=== PATIENT | female | born 1995 | race Caucasian/White ===

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

== ENCOUNTER → 2017-02-03 | Outpatient (REF) | payer OTHER | LOC: M LAB REF 16:09 | PROVIDERS: ATTEND Physician Assistant | DX: R30.0 Dysuria (principal) ==

== ENCOUNTER → 2017-04-03 | Outpatient (CLI) | payer OTHER ==
--- NOTE | 2017-04-04 03:05 | REP ---
Clinical: Pain . Technique: Internal rotation, external rotation, and Y view left shoulder . Findings: No acute fracture or dislocation. The acromioclavicular and glenohumeral joints are intact. No periarticular calcifications or degenerative changes are appreciated. Sub acromial space is normal. Surrounding soft tissues are unremarkable. Impression: Normal age-appropriate left shoulder radiographs. Signed by Mynor Tenorio MD 04/04/2017 02:56 A
== END ==
LOC: M WUC 17:19
PROVIDERS: ATTEND Physician Assistant
DX: M25.511 Pain in right shoulder (principal)

== ENCOUNTER → 2017-04-25 | Outpatient (CLI) | payer OTHER ==
[2017-04-25 20:57] LABS: BASO # 0.1 10^3/uL (0.0-0.2); BASO % 0.8 % (0.0-1.0); EOS % 9.9 % (0.0-3.0); IMMATURE GRANULOCYTE % 0.4 % (0-0); LYMPH # 3.8 10^3/uL (1.5-6.5); LYMPH % 37.9 % (24.0-44.0); MEAN CORPUSCULAR HEMOGLOBIN 27.7 pg (27.0-33.0); MEAN CORPUSCULAR HGB CONC 33.1 g/dl (32.0-36.5); MEAN CORPUSCULAR VOLUME 83.9 fl (80.0-96.0); MONO # 0.8 10^3/uL (0.0-0.8); MONO % 7.6 % (0.0-5.0); NEUTROPHILS # 4.4 10^3/uL (1.8-7.7); NEUTROPHILS % 43.4 % (36.0-66.0); PLATELET COUNT, AUTOMATED 385 10^3/uL (150-450); RED CELL DISTRIBUTION WIDTH 12.6 % (11.5-14.5)
[2017-04-25 21:36] LABS: ALBUMIN 3.5 GM/DL (3.2-5.2); ALBUMIN/GLOBULIN RATIO 0.85 (1.00-1.93); ALKALINE PHOSPHATASE 78 U/L (45-117); ALT/SGPT 14 U/L (12-78); ANION GAP 7 MEQ/L (8-16); AST/SGOT 10 U/L (15-37); BILIRUBIN,TOTAL 0.3 MG/DL (0.2-1.0); BLOOD UREA NITROGEN 8 MG/DL (7-18); CALCIUM LEVEL 9.2 MG/DL (8.5-10.1); CARBON DIOXIDE LEVEL 27 MEQ/L (21-32); CHLORIDE LEVEL 104 MEQ/L (98-107); CREATININE FOR GFR 0.57 MG/DL (0.55-1.02); GLUCOSE, FASTING 83 MG/DL (70-105); POTASSIUM SERUM 4.2 MEQ/L (3.5-5.1); SODIUM LEVEL 138 MEQ/L (136-145); TOTAL PROTEIN 7.6 GM/DL (6.4-8.2)
[2017-04-28 00:07] LABS: Lyme Disease IgG/IgM Antibodie <0.91 ISR (0.00-0.90); Lyme Disease IgM Ab Quantitati <0.80 index (0.00-0.79)
== END ==
LOC: M WUC 16:00
PROVIDERS: ATTEND Physician Assistant
DX: R53.83 Other fatigue (principal)

== ENCOUNTER → 2017-07-07 | Outpatient (REF) | payer OTHER | LOC: M LAB REF 21:47 | DX: R10.9 Unspecified abdominal pain (principal) ==

== ENCOUNTER → 2017-08-29 | Outpatient (REF) | payer OTHER ==
[2017-08-29 20:50] LABS: INFLUENZA A AMPLIFICATION NEGATIVE (NEGATIVE); INFLUENZA B AMPLIFICATION NEGATIVE (NEGATIVE)
== END ==
LOC: M LAB REF 09:41
DX: J11.1 Influenza due to unidentified influenza virus with other respiratory manifestations (principal)

== ENCOUNTER → 2017-09-05 | Outpatient (REF) | payer OTHER ==
[2017-09-05 19:36] LABS: BASO # 0.1 10^3/uL (0.0-0.2); BASO % 0.6 % (0.0-1.0); EOS # 0.4 10^3/uL (0.0-0.50); EOS % 4.5 % (0.0-3.0); HEMATOCRIT 38.7 % (36.0-47.0); IMMATURE GRANULOCYTE % 0.2 % (0-3.0); LYMPH # 3.9 10^3/uL (1.5-6.5); LYMPH % 46.1 % (24.0-44.0); MEAN CORPUSCULAR HEMOGLOBIN 27.4 pg (27.0-33.0); MEAN CORPUSCULAR HGB CONC 33.6 g/dl (32.0-36.5); MEAN CORPUSCULAR VOLUME 81.6 fl (80.0-96.0); MONO # 0.7 10^3/uL (0.0-0.8); MONO % 8.8 % (0.0-5.0); NEUTROPHILS # 3.3 10^3/uL (1.8-7.7); NEUTROPHILS % 39.8 % (36.0-66.0); PLATELET COUNT, AUTOMATED 311 10^3/uL (150-450); RED BLOOD COUNT 4.74 10^6/uL (4.00-5.40); RED CELL DISTRIBUTION WIDTH 12.2 % (11.5-14.5); WHITE BLOOD COUNT 8.4 10^3/uL (4.0-10.0)
[2017-09-05 20:02] LABS: FOLATE > 24.0 NG/ML (>5.4)
[2017-09-05 20:05] LABS: TOTAL 25(OH) VITAMIN D 14.6 NG/ML (30.0-100.0)
[2017-09-05 20:23] LABS: ALBUMIN 3.7 GM/DL (3.2-5.2); ALBUMIN/GLOBULIN RATIO 0.93 (1.00-1.93); ALKALINE PHOSPHATASE 92 U/L (45-117); ALT/SGPT 34 U/L (12-78); ANION GAP 8 MEQ/L (8-16); AST/SGOT 26 U/L (7-37); BILIRUBIN,TOTAL 0.2 MG/DL (0.2-1.0); BLOOD UREA NITROGEN 8 MG/DL (7-18); C REACTIVE PROTEIN QUANTITATIV 0.98 MG/DL (0.00-0.30); CALCIUM LEVEL 9.3 MG/DL (8.5-10.1); CARBON DIOXIDE LEVEL 25 MEQ/L (21-32); CHLORIDE LEVEL 103 MEQ/L (98-107); CREATININE FOR GFR 0.65 MG/DL (0.55-1.30); FERRITIN 24 NG/ML (8-252); GLUCOSE, FASTING 89 MG/DL (70-100); IRON (FE) 88 UG/DL (50-170); POTASSIUM SERUM 4.3 MEQ/L (3.5-5.1); SODIUM LEVEL 136 MEQ/L (136-145); TOTAL PROTEIN 7.7 GM/DL (6.4-8.2)
[2017-09-06 09:02] LABS: CONTROL LINE MONO INT CTR LINE PRESENT; MONO SCRN NEGATIVE (NEGATIVE)
== END ==
LOC: M LAB REF 17:09
DX: R53.83 Other fatigue (principal); R53.81 Other malaise
CPT/HCPCS: 82746

== ENCOUNTER → 2017-10-02 | Outpatient (CLI) | payer OTHER | LOC: M WUC 17:10 | DX: S60.052A Contusion of left little finger without damage to nail, initial encounter (principal); X58.XXXA Exposure to other specified factors, initial encounter; Y92.9 Unspecified place or not applicable | CPT/HCPCS: 73660 ==

== ENCOUNTER → 2018-01-17 | Outpatient (REF) | payer OTHER | LOC: M LAB REF 13:16 | DX: R10.30 Lower abdominal pain, unspecified (principal) ==

== ENCOUNTER → 2018-01-17 | Outpatient (CLI) | payer OTHER | LOC: M RAD 14:19 | DX: R10.30 Lower abdominal pain, unspecified (principal) | CPT/HCPCS: 76856 ==

== ENCOUNTER → 2018-01-17 | Outpatient (CLI) | payer OTHER ==
[2018-01-17 10:17] LABS: BASO # 0.1 10^3/uL (0.0-0.2); BASO % 0.9 % (0.0-1.0); EOS # 0.8 10^3/uL (0.0-0.50); HEMATOCRIT 37.6 % (36.0-47.0); HEMOGLOBIN 12.4 g/dl (12.0-15.5); IMMATURE GRANULOCYTE % 0.4 % (0-3.0); LYMPH # 3.1 10^3/uL (1.5-6.5); LYMPH % 38.9 % (24.0-44.0); MEAN CORPUSCULAR HEMOGLOBIN 28.2 pg (27.0-33.0); MEAN CORPUSCULAR VOLUME 85.5 fl (80.0-96.0); MONO # 0.8 10^3/uL (0.0-0.8); NEUTROPHILS # 3.2 10^3/uL (1.8-7.7); NEUTROPHILS % 39.8 % (36.0-66.0); PLATELET COUNT, AUTOMATED 324 10^3/uL (150-450); RED CELL DISTRIBUTION WIDTH 12.4 % (11.5-14.5)
[2018-01-17 10:52] LABS: ALBUMIN 3.7 GM/DL (3.2-5.2); ALKALINE PHOSPHATASE 102 U/L (45-117); ALT/SGPT 24 U/L (12-78); ANION GAP 11 MEQ/L (8-16); AST/SGOT 15 U/L (7-37); BILIRUBIN,TOTAL 0.5 MG/DL (0.2-1.0); BLOOD UREA NITROGEN 10 MG/DL (7-18); CALCIUM LEVEL 8.7 MG/DL (8.5-10.1); CARBON DIOXIDE LEVEL 24 MEQ/L (21-32); CHLORIDE LEVEL 106 MEQ/L (98-107); CREATININE FOR GFR 1.28 MG/DL (0.55-1.30); GLUCOSE, FASTING 90 MG/DL (70-100); HCG, SERUM QUANTITATIVE < 1.0 MIU/ML; POTASSIUM SERUM 4.3 MEQ/L (3.5-5.1); SODIUM LEVEL 141 MEQ/L (136-145); TOTAL PROTEIN 7.4 GM/DL (6.4-8.2)
== END ==
LOC: M WUC 09:22
DX: R10.30 Lower abdominal pain, unspecified (principal)
CPT/HCPCS: 80053

== ENCOUNTER 2018-09-07 11:09 | Emergency (ER) | payer OTHER ==
[~2018-09-07] VITALS: Ht 154.9 cm; Wt 54.5 kg
[2018-09-07] MEDS ORDERED: CYCLOBENZAPRINE 10 MG TAB PO ONE (11:30)
[2018-09-07] MEDS ORDERED: MORPHINE 10 MG/ML 1ML VIAL (J2270) IM ONE (11:30)
--- NOTE | 2018-09-07 11:57 | REP ---
Clinical: Trauma/fall with point tenderness. Technique: Axial noncontrast images from T12 through mid sacrum with coronal and sagittal re-formations. Findings: Alignment and lordosis maintained. Vertebral bodies are intact. No acute fracture / compression injury or subluxation. No obvious significant disc bulge. Spinal canal is patent. Posterior elements and spinous processes are intact. Neural foramen appear patent. Paravertebral soft tissues appear normal. Impression: Normal noncontrast lumbosacral spine CT. Electronically Signed by Mynor Tenorio MD 09/07/2018 11:48 A
[2018-09-07] MEDS ORDERED: ROBA500T PO (12:07)
[2018-09-07] MEDS ORDERED: PRED10TA2 PO (12:07)
[2018-09-07 12:12] VITALS: BP 111/68
== END 2018-09-07 12:10 | disposition home or self-care (01) ==
LOC: M ED 11:09
DX: S39.012A Strain of muscle, fascia and tendon of lower back, initial encounter (principal); M62.830 Muscle spasm of back; W19.XXXA Unspecified fall, initial encounter; Y92.89 Other specified places as the place of occurrence of the external cause; Z88.1 Allergy status to other antibiotic agents
CPT/HCPCS: 72131; 96372; 99283; J2270

== ENCOUNTER → 2019-01-14 | Outpatient (CLI) | payer OTHER ==
[~2019-01-14] MED LIST: PRED10TA2 PO; ROBA500T PO
--- NOTE | 2019-01-14 22:56 | REP ---
Clinical: Right lower quadrant pain . Technique: Transabdominal pelvic ultrasound followed by transvaginal examination for better evaluation of the endometrium and adnexa. Findings: Bladder is collapsed. Normal anteverted uterus measures 7.7 x 3.6 x 3.4 cm . The endometrial complex measures 3.3 mm thickness. No discrete uterine or endometrial abnormalities are appreciated. Bilateral ovaries are normal in appearance. Right ovary measures 3.0 x 1.7 x 2.3 cm ; Left ovary measures 3.6 x 1.9 x 2.3 cm. No pelvic free fluid or adnexal mass lesion . Impression: 1. Normal pelvic ultrasound Electronically Signed by Mynor Tenorio MD 01/14/2019 10:47 P
== END ==
LOC: M RAD 10:28
PROVIDERS: ATTEND Physician Assistant Medical
DX: R10.813 Right lower quadrant abdominal tenderness (principal)

== ENCOUNTER 2019-03-09 09:33 | Emergency (ER) | payer OTHER ==
[~2019-03-09] VITALS: Ht 157.5 cm; Wt 69.0 kg
[2019-03-09] MEDS ORDERED: IBUP-1114 PO (09:38)
[2019-03-09] MEDS ORDERED: REME30TA PO (09:38)
[2019-03-09] MEDS ORDERED: ONDANSETRON 4MG/2ML VIAL (J2405) IV ONE (09:45)
[2019-03-09] MEDS ORDERED: NS 1,000 ML IV ONE (09:45)
[2019-03-09] MEDS ORDERED: NS IV ONE (10:00)
[2019-03-09] MEDS ORDERED: ACETAMINOPHEN 500 MG TAB PO ONE (10:00)
[2019-03-09] MEDS ORDERED: [UNRECOGNIZED DRUG - OTHER] IV ONE (10:00)
[2019-03-09] MEDS ORDERED: KETOROLAC 30 MG/ML VIAL (J1885) IV ONE (10:00)
[2019-03-09] MEDS ORDERED: LIDOCAINE 2% IV ONE (10:00)
[2019-03-09 10:01] LABS: BASO # 0.1 10^3/uL (0.0-0.2); BASO % 0.9 % (0.0-1.0); EOS # 0.6 10^3/uL (0.0-0.5); EOS % 5.9 % (0.0-3.0); HEMATOCRIT 39.7 % (36.0-47.0); HEMOGLOBIN 13.2 g/dl (12.0-15.5); LYMPH # 3.1 10^3/uL (1.5-5.0); LYMPH % 29.4 % (24.0-44.0); MEAN CORPUSCULAR HEMOGLOBIN 27.9 pg (27.0-33.0); MEAN CORPUSCULAR HGB CONC 33.2 g/dl (32.0-36.5); MEAN CORPUSCULAR VOLUME 83.9 fl (80.0-96.0); MONO % 9.3 % (0.0-5.0); NEUTROPHILS # 5.6 10^3/uL (1.5-8.5); NEUTROPHILS % 52.9 % (36.0-66.0); PLATELET COUNT, AUTOMATED 350 10^3/uL (150-450); RED BLOOD COUNT 4.73 10^6/uL (4.00-5.40); WHITE BLOOD COUNT 10.6 10^3/uL (4.0-10.0)
[2019-03-09] MEDS ORDERED: MORPHINE 4 MG/ML 1ML VIAL/SYRINGE (J2270) As Ordered ONE (10:06)
[2019-03-09] MEDS ORDERED: MORPHINE 4 MG/ML 1ML VIAL/SYRINGE (J2270) IV ONE (10:15)
[2019-03-09 10:32] LABS: ALBUMIN 3.7 GM/DL (3.2-5.2); BILIRUBIN,DIRECT 0.1 MG/DL (0.0-0.2); BILIRUBIN,TOTAL 0.2 MG/DL (0.2-1.0); TOTAL PROTEIN 7.7 GM/DL (6.4-8.2)
--- NOTE | 2019-03-09 10:45 | REP ---
Clinical: Right flank pain. Technique: Axial noncontrast images from the lung bases to the pubic symphysis with coronal and sagittal re-formations. Comparison: 05/30/2016. Findings: Mild right-sided acute obstructive uropathy with hydronephrosis and hydroureter with a 2 mm obstructing calculus at the right ureterovesical junction (image #[id number]). Few small bilateral nonobstructing intrarenal calculi noted measuring up to 2 mm. Liver, spleen, pancreas, gallbladder, and bilateral adrenal glands are normal for noncontrast evaluation. The enteric system is without obstruction or acute inflammatory process. Pelvis demonstrates collapsed normal bladder and age-appropriate uterus/adnexa. No ascites. No free air. No adenopathy. Abdominal aorta without aneurysm. Musculoskeletal structures intact lung bases clear. Impression: Mild acute right-sided obstructive uropathy with a 2 mm obstructing calculus at the ureterovesicle junction. Small nonobstructing bilateral intrarenal calculi up to 2 mm. Electronically Signed by Mynor Tenorio MD 03/09/2019 10:37 A
[2019-03-09] MEDS ORDERED: LevoFLOXacin IV 750 MG in APPROPRIATE DILUENT 1 EA IV ONE (11:00)
[2019-03-09] MEDS ORDERED: PERCOCET 5MG/325MG TAB PO ONE (11:15)
[2019-03-09 12:15] VITALS: BP 120/63
[2019-03-09] MEDS ORDERED: LEVA750T7 PO (12:29)
[2019-03-09] MEDS ORDERED: PERC5TAB12 PO (12:30)
[2019-03-09] MEDS ORDERED: ZOFR4TAB16 PO (12:31)
[2019-03-09] MEDS ORDERED: IBUP-1022 PO (12:31)
== END 2019-03-09 12:20 | disposition home or self-care (01) ==
LOC: M ED 09:33
DX: N39.0 Urinary tract infection, site not specified (principal); N23 Unspecified renal colic; N13.30 Unspecified hydronephrosis; F17.210 Nicotine dependence, cigarettes, uncomplicated
CPT/HCPCS: 74176; 80047; 80076; 81001; 83690; 84702; 85025; 87040; 87086; 93041; 96361; 96365; 96375; 99284; J1885; J1956; J2270; J2405

== ENCOUNTER 2019-05-18 11:55 | Emergency (ER) | payer OTHER ==
[~2019-05-18] VITALS: Ht 154.9 cm; Wt 64.2 kg
[~2019-05-18 11:55] MED LIST changes: +IBUP-1022 PO; +IBUP-1114 PO; +LEVA750T7 PO; +PERC5TAB12 PO; +REME30TA PO; +ZOFR4TAB16 PO
[2019-05-18 12:31] LABS: BASO # 0.1 10^3/uL (0.0-0.2); BASO % 0.7 % (0.0-1.0); EOS # 0.4 10^3/uL (0.0-0.5); EOS % 3.8 % (0.0-3.0); HEMATOCRIT 38.5 % (36.0-47.0); HEMOGLOBIN 12.6 g/dl (12.0-15.5); LYMPH # 2.8 10^3/uL (1.5-5.0); LYMPH % 27.3 % (24.0-44.0); MEAN CORPUSCULAR HEMOGLOBIN 28.4 pg (27.0-33.0); MEAN CORPUSCULAR HGB CONC 32.7 g/dl (32.0-36.5); MEAN CORPUSCULAR VOLUME 86.9 fl (80.0-96.0); MONO % 9.5 % (0.0-5.0); NEUTROPHILS # 5.9 10^3/uL (1.5-8.5); NEUTROPHILS % 58.3 % (36.0-66.0); PLATELET COUNT, AUTOMATED 332 10^3/uL (150-450); RED BLOOD COUNT 4.43 10^6/uL (4.00-5.40); WHITE BLOOD COUNT 10.2 10^3/uL (4.0-10.0)
[2019-05-18] MEDS ORDERED: NS IV ONE (12:45)
[2019-05-18] MEDS ORDERED: KETAMINE HCL IV ONE (12:45)
[2019-05-18 12:55] LABS: ALBUMIN 3.7 GM/DL (3.2-5.2); ALT/SGPT 16 U/L (12-78); BILIRUBIN,DIRECT 0.2 MG/DL (0.0-0.2); BILIRUBIN,TOTAL 0.8 MG/DL (0.2-1.0); BLOOD UREA NITROGEN 9 MG/DL (7-18); CALCIUM LEVEL 8.8 MG/DL (8.5-10.1); CARBON DIOXIDE LEVEL 25 MEQ/L (21-32); CHLORIDE LEVEL 111 MEQ/L (98-107); CREATININE FOR GFR 0.84 MG/DL (0.55-1.30); GLOMERULAR FILTRATION RATE > 60.0 (>60); GLUCOSE, FASTING 101 MG/DL (70-100); LIPASE 71 U/L (73-393); POTASSIUM SERUM 3.6 MEQ/L (3.5-5.1); SODIUM LEVEL 142 MEQ/L (136-145); TOTAL PROTEIN 7.2 GM/DL (6.4-8.2)
--- NOTE | 2019-05-18 13:46 | REP ---
CT of the abdomen pelvis without IV and oral contrast for left flank pain: Comparison is 03/09/2019. There is a 4 mm calculus in the proximal left ureter. There is left hydronephrosis. There is no perinephric stranding. There is no right hydronephrosis. There are tiny nonobstructive renal calculi bilaterally as previously. There are no bladder calculi. The visualized lung arita are unremarkable. The unenhanced hepatic parenchyma, gallbladder, pancreas, spleen, adrenals and abdominal aorta are unremarkable. There is no periaortic adenopathy or mass. The bowel and mesentery are unremarkable. Pelvis: The appendix is unremarkable. The uterus, adnexa and bladder are unremarkable. There is no adenopathy or ascites. The pelvic bowel loops are unremarkable. Impression: There is a 4 mm calculus in the proximal left ureter. There is left hydronephrosis. There are multiple tiny bilateral nonobstructive renal calculi. Electronically Signed by Erwin Rao MD 05/18/2019 01:36 P
[2019-05-18] MEDS ORDERED: PERC5TAB12 PO (14:06)
[2019-05-18] MEDS ORDERED: CIPR-249 PO (14:06)
[2019-05-18] MEDS ORDERED: ONDA4TAB6 PO (14:06)
[2019-05-18] MEDS ORDERED: FLOM0.4C39 PO (14:06)
[2019-05-18 14:08] VITALS: BP 100/67
== END 2019-05-18 14:38 | disposition home or self-care (01) ==
LOC: M ED 11:55
DX: N20.1 Calculus of ureter (principal); F17.210 Nicotine dependence, cigarettes, uncomplicated; Z88.1 Allergy status to other antibiotic agents; Z79.899 Other long term (current) drug therapy

== ENCOUNTER 2019-05-19 10:21 | Emergency (ER) | payer OTHER ==
[~2019-05-19] VITALS: Ht 154.9 cm; Wt 64.6 kg
[~2019-05-19 10:21] MED LIST changes: +CIPR-249 PO; +FLOM0.4C39 PO; +ONDA4TAB6 PO
[2019-05-19] MEDS ORDERED: METOCLOPRAMIDE INJ 10MG/2ML VIAL (J2765) IV ONE (10:45)
[2019-05-19] MEDS ORDERED: MORPHINE 2 MG/ML 1ML VIAL (J2270) IV ONE (10:45)
[2019-05-19] MEDS ORDERED: NS 1,000 ML IV ONE (10:45)
[2019-05-19 12:17] VITALS: BP 107/62
== END 2019-05-19 12:32 | disposition home or self-care (01) ==
LOC: M ED 10:21
DX: N20.1 Calculus of ureter (principal); N39.0 Urinary tract infection, site not specified; Z87.442 Personal history of urinary calculi; F17.200 Nicotine dependence, unspecified, uncomplicated; Z79.899 Other long term (current) drug therapy; Z88.1 Allergy status to other antibiotic agents
CPT/HCPCS: 80047; 96374; 96375; 99284; J2270; J2765

== ENCOUNTER → 2019-08-31 | Outpatient (CLI) | payer OTHER ==
--- NOTE | 2019-08-31 15:15 | REP ---
The right hand four views : Comparison is 07/23/2015. There is no fracture or dislocation. Mineralization and joint spaces are normal. There are no calcifications or foreign bodies. Impression: Negative right hand . There is no interval change. Electronically Signed by Erwin Rao MD 08/31/2019 03:06 P
== END ==
LOC: M WUC 12:54
PROVIDERS: ATTEND Physician Assistant
DX: M25.541 Pain in joints of right hand (principal)

== ENCOUNTER → 2023-01-22 | Outpatient (CLI) | payer OTHER ==
[~2023-01-22] MED LIST changes: +MIRT-60 PO; -REME30TA PO
[2023-01-22 11:10] LABS: HEMATOCRIT 36.3 % (36.0-47.0); HEMOGLOBIN 12.2 g/dl (12.0-15.5); MEAN CORPUSCULAR HGB CONC 33.6 g/dl (32.0-36.5); MEAN CORPUSCULAR VOLUME 86.4 fl (80.0-96.0); PLATELET COUNT, AUTOMATED 294 10^3/uL (150-450); WHITE BLOOD COUNT 9.2 10^3/uL (4.0-10.0)
[2023-01-22 11:24] LABS: AMORPHOUS SEDIMENT SMALL (NEGATIVE); APPEARANCE, URINE CLOUDY (CLEAR); BACTERIA, URINE AUTO NEGATIVE (NEGATIVE); BILIRUBIN, URINE AUTO NEGATIVE (NEGATIVE); BLOOD, URINE BLOOD NEGATIVE (NEGATIVE); COLOR, URINE YELLOW (YELLOW); GLUCOSE, URINE (UA) AUTO NEGATIVE (NEGATIVE); KETONE, URINE AUTO NEGATIVE (NEGATIVE); LEUKOCYTE ESTERASE, URINE AUTO 2+ (NEGATIVE); MUCUS, URINE SMALL (NEGATIVE); NITRITE, URINE AUTO NEGATIVE (NEGATIVE); PROTEIN, URINE AUTO NEGATIVE (NEGATIVE); RBC, URINE AUTO 2 /HPF (0-3); SPECIFIC GRAVITY URINE AUTO 1.018 (1.002-1.035); SQUAMOUS EPITHELIAL CELL UR AU 30 /HPF (0-6); WBC, URINE AUTO 10 /HPF (0-3)
[2023-01-22 11:37] LABS: FREE T4 0.97 NG/DL (0.89-1.76)
[2023-01-22 11:38] LABS: TOTAL 25(OH) VITAMIN D 16.8 NG/ML (20.0-100.0)
[2023-01-22 11:46] LABS: THYROID STIMULATING HORMONE 0.513 uIU/ML (0.55-4.78)
[2023-01-22 13:44] LABS: HEPATITIS B SURFACE ANTIGEN NEGATIVE (NEGATIVE)
[2023-01-22 13:57] LABS: HIV 1&2 SCREEN NEGATIVE (NEGATIVE)
[2023-01-22 14:05] LABS: HEPATITIS C VIRUS ABY INDEX 0.08 INDEX (<0.8)
== END ==
LOC: M RAD 09:54
PROVIDERS: ATTEND Obstetrics & Gynecology
DX: Z34.81 Encounter for supervision of other normal pregnancy, first trimester (principal); Z3A.10 10 weeks gestation of pregnancy

== ENCOUNTER 2023-03-20 22:53 | Emergency (ER) | payer OTHER ==
[~2023-03-20] VITALS: Ht 152.4 cm; Wt 54.0 kg
[2023-03-20 22:54] VITALS: BP 123/69; TEMP 97.9; O2SAT 100
[2023-03-20] MEDS ORDERED: MULTTAB20 PO (23:02)
[2023-03-20 23:31] LABS: APPEARANCE, URINE HAZY (CLEAR); BACTERIA, URINE AUTO 1+ (NEGATIVE); BILIRUBIN, URINE AUTO NEGATIVE (NEGATIVE); BLOOD, URINE BLOOD 3+ (NEGATIVE); COLOR, URINE RED (YELLOW); GLUCOSE, URINE (UA) AUTO NEGATIVE (NEGATIVE); KETONE, URINE AUTO NEGATIVE (NEGATIVE); LEUKOCYTE ESTERASE, URINE AUTO 2+ (NEGATIVE); MUCUS, URINE SMALL (NEGATIVE); NITRITE, URINE AUTO NEGATIVE (NEGATIVE); PROTEIN, URINE AUTO 2+ mg/dL (NEGATIVE); RBC, URINE AUTO TNTC /HPF (0-3); SPECIFIC GRAVITY URINE AUTO 1.006 (1.002-1.035); SQUAMOUS EPITHELIAL CELL UR AU 6 /HPF (0-6); UROBILINOGEN, URINE AUTO 0.2 mg/dL (0.0-2.0); WBC, URINE AUTO 24 /HPF (0-3)
== END 2023-03-21 04:40 | disposition left against medical advice (07) ==
LOC: M ED 22:53
DX: Z53.21 Procedure and treatment not carried out due to patient leaving prior to being seen by health care provider (principal)

== ENCOUNTER → 2023-03-23 | Outpatient (CLI) | payer OTHER ==
[~2023-03-23] MED LIST changes: +MULTTAB20 PO
== END ==
LOC: M RAD 08:00
PROVIDERS: ATTEND Obstetrics & Gynecology
DX: O35.03X0 Maternal care for (suspected) central nervous system malformation or damage in fetus, choroid plexus cysts, not applicable or unspecified (principal); Z3A.19 19 weeks gestation of pregnancy

== ENCOUNTER → 2023-05-02 | Outpatient (CLI) | payer OTHER ==
[~2023-05-02] MED LIST changes: +ACET-897 PO; +MACR100C43 PO
[2023-05-02 10:38] LABS: HEMATOCRIT 35.6 % (36.0-47.0); HEMOGLOBIN 11.7 g/dl (12.0-15.5); MEAN CORPUSCULAR HEMOGLOBIN 29.1 pg (27.0-33.0); MEAN CORPUSCULAR HGB CONC 32.9 g/dl (32.0-36.5); MEAN CORPUSCULAR VOLUME 88.6 fl (80.0-96.0); PLATELET COUNT, AUTOMATED 268 10^3/uL (150-450); RED BLOOD COUNT 4.02 10^6/uL (4.00-5.40); WHITE BLOOD COUNT 10.8 10^3/uL (4.0-10.0)
[2023-05-02 11:11] LABS: TOTAL 25(OH) VITAMIN D 23.2 NG/ML (20.0-100.0)
== END ==
LOC: M LAB 08:34
PROVIDERS: ATTEND Obstetrics & Gynecology
DX: Z34.02 Encounter for supervision of normal first pregnancy, second trimester (principal)

== ENCOUNTER 2023-06-17 10:01 | Outpatient (CLI) | payer OTHER ==
[~2023-06-17] VITALS: Ht 152.4 cm; Wt 60.1 kg
[2023-06-17 10:19] VITALS: BP 116/65
[2023-06-17] MEDS ORDERED: LR 1,000 ML IV ONE (10:45)
== END 2023-06-17 12:09 | disposition home or self-care (01) ==
LOC: M LDO 10:01
PROVIDERS: ATTEND Obstetrics & Gynecology
DX: O36.8139 Decreased fetal movements, third trimester, other fetus (principal); O26.23 Pregnancy care for patient with recurrent pregnancy loss, third trimester; O99.333 Smoking (tobacco) complicating pregnancy, third trimester; F17.210 Nicotine dependence, cigarettes, uncomplicated; Z14.1 Cystic fibrosis carrier; Z3A.31 31 weeks gestation of pregnancy
CPT/HCPCS: 59025; 87430; G0463

== ENCOUNTER → 2023-08-01 | Outpatient (CLI) | payer OTHER ==
[2023-08-01 17:52] LABS: URIC ACID 5.4 MG/DL (3.1-7.8)
[2023-08-01 17:54] LABS: HEMATOCRIT 34.3 % (36.0-47.0); HEMOGLOBIN 11.5 g/dl (12.0-15.5); LDH LACTATE DEHYDROGENASE 224 U/L (120-246); MEAN CORPUSCULAR HEMOGLOBIN 28.6 pg (27.0-33.0); MEAN CORPUSCULAR HGB CONC 33.5 g/dl (32.0-36.5); MEAN CORPUSCULAR VOLUME 85.3 fl (80.0-96.0); PLATELET COUNT, AUTOMATED 318 10^3/uL (150-450); RED BLOOD COUNT 4.02 10^6/uL (4.00-5.40); WHITE BLOOD COUNT 12.6 10^3/uL (4.0-10.0)
[2023-08-01 17:55] LABS: CREATININE,RANDOM URINE 41.3 MG/DL
[2023-08-01 17:56] LABS: ALBUMIN 2.2 G/DL (3.2-5.2); ALKALINE PHOSPHATASE 281 U/L (46-116); ALT/SGPT 129 U/L (7.0-40); AST/SGOT 92 U/L (<34); BILIRUBIN,TOTAL 0.5 MG/DL (0.3-1.2); BLOOD UREA NITROGEN 10 MG/DL (9-23); CALCIUM LEVEL 8.5 MG/DL (8.5-10.1); CARBON DIOXIDE LEVEL 23 MMOL/L (20-31); CHLORIDE LEVEL 105 MMOL/L (98-107); CREATININE FOR GFR 0.68 MG/DL (0.55-1.30); GLOMERULAR FILTRATION RATE > 60.0 (>60); GLUCOSE, FASTING 95 MG/DL (60-100); POTASSIUM SERUM 3.9 MMOL/L (3.5-5.1); SODIUM LEVEL 137 MMOL/L (136-145); TOTAL PROTEIN 6.3 G/DL (5.7-8.2)
== END ==
LOC: M PLALAB 10:26
PROVIDERS: ATTEND Obstetrics & Gynecology
DX: O99.719 Diseases of the skin and subcutaneous tissue complicating pregnancy, unspecified trimester (principal); R03.0 Elevated blood-pressure reading, without diagnosis of hypertension

== ENCOUNTER 2023-08-03 14:07 | Inpatient (IN) | payer OTHER ==
[~2023-08-03] VITALS: Ht 152.4 cm; Wt 62.4 kg
[2023-08-03] VITALS (10 sets, daily range): BP systolic 124–158; BP diastolic 77–92; O2SAT 98
[~2023-08-03 14:07] MED LIST changes: -COLA100C5 PO; -IBUP80TA PO; -OXYC1TAB23 PO
[2023-08-03] MEDS ORDERED: HOME MED LIST COMPLETE! XX SCH (14:35)
[2023-08-03] MEDS ORDERED: PENICILLIN G POTASSIUM 5 MU IV 5 MU in D5W MINI-BAG PLUS 100 ML IV STA ×2 (14:54→21:49)
[2023-08-03] MEDS ORDERED: LACTATED RINGER'S 1000 ML IV STA (14:54)
[2023-08-03] MEDS ORDERED: METHYLERGONOVINE MALEATE 0.2MG/ML 1ML VIAL IM PRN (14:55)
[2023-08-03] MEDS ORDERED: OXYTOCIN DRIP 30 UNITS in IV 1 EA IV PRN (14:55)
[2023-08-03] MEDS ORDERED: CARBOPROST TROMETHAMINE 250 MCG/ML AMP IM PRN (14:55)
[2023-08-03] MEDS ORDERED: TRANEXAMIC ACID INJection 1,000 MG in NS 100 ML IV PRN (14:55)
[2023-08-03] MEDS ORDERED: LIDOCAINE 1% MDV 20ML VIAL INFIL PRN (14:55)
[2023-08-03 15:20] LABS: HEMATOCRIT 30.1 % (36.0-47.0); HEMOGLOBIN 10.3 g/dl (12.0-15.5); MEAN CORPUSCULAR HEMOGLOBIN 28.9 pg (27.0-33.0); MEAN CORPUSCULAR HGB CONC 34.2 g/dl (32.0-36.5); MEAN CORPUSCULAR VOLUME 84.6 fl (80.0-96.0); PLATELET COUNT, AUTOMATED 311 10^3/uL (150-450); RED BLOOD COUNT 3.56 10^6/uL (4.00-5.40); WHITE BLOOD COUNT 11.4 10^3/uL (4.0-10.0)
[2023-08-03] MEDS ORDERED: CALCIUM CARBONATE 500 MG CHEW U/D PO PRN (15:50)
[2023-08-03] MEDS ORDERED: miSOPROStol 50MCG 1/2 TABLET PO SCH (16:00)
[2023-08-03] MEDS ORDERED: NALOXONE INJ 0.4MG/1ML VIAL IV PRN (18:40)
[2023-08-03] MEDS ORDERED: FENTANYL/ROPIVACAINE/NACL BAG 100 ML EPIDURAL SCH (18:40)
[2023-08-03] MEDS ORDERED: EPIDURAL/PCA KEYS XX PRN (18:40)
[2023-08-03] MEDS ORDERED: LR 500 ML IV PRN (18:40)
[2023-08-03] MEDS ORDERED: diphenhydrAMINE 50MG/ML VIAL IV PRN (18:40)
[2023-08-03] MEDS ORDERED: ONDANSETRON 4MG 2ML VIAL IV PRN (18:40)
[2023-08-03] MEDS ORDERED: PEN G POT 3,000,000 UNIT/50 ML 3,000,000 UNIT in IV 1 EA IV SCH (18:55)
[2023-08-03] MEDS ORDERED: OXYTOCIN DRIP 30 UNITS in IV 1 EA IV SCH (22:40)
[2023-08-03] MEDS ORDERED: PROMETHAZINE 25MG/ML 1ML VIAL IV ONE (23:00)
[2023-08-03] MEDS ORDERED: BUTORPHANOL 2 MG/ML 1ML VIAL IV ONE (23:00)
[2023-08-04] VITALS (59 sets, daily range): BP systolic 89–157; BP diastolic 55–92; TEMP 99.9; O2SAT 96–100
[2023-08-04] MEDS: LR 1,000 ML IV SCH ×4 (01:00→17:12)
[2023-08-04] MEDS: PEN G POT 3,000,000 UNIT/50 ML 3,000,000 UNIT in IV 1 EA IV SCH ×4 (01:56→14:09)
[2023-08-04] MEDS: FENTANYL/ROPIVACAINE/NACL BAG 100 ML EPIDURAL SCH ×2 (02:44→11:18)
[2023-08-04] MEDS: ePHEDrine SULFATE 25 MG/5 ML(5MG/ML) SYRINGE IVP PRN ×3 (04:45→06:57)
[2023-08-04] MEDS ORDERED: ceFAZolin SOD 2 GM in IV 1 EA IV ONE (15:25)
[2023-08-04] MEDS ORDERED: BICITRA 30ML SOLN UDC PO ONE (15:25)
[2023-08-04] MEDS ORDERED: fentaNYL 100 MCG/2 ML INJECTION As Ordered ONE (15:26)
[2023-08-04] MEDS ORDERED: LIDOCAINE 2% 100MG/5ML SDV (FOR ANES.) As Ordered ONE ×2 (15:27→15:28)
[2023-08-04] MEDS ORDERED: EPINEPHrine INJ 1 MG/ML 1ML AMP As Ordered ONE (15:29)
[2023-08-04] MEDS ORDERED: GLYCOPYRROLATE INJ 0.2 MG/ML 2 ML VIAL As Ordered ONE (15:48)
[2023-08-04] MEDS ORDERED: AZITHROMYCIN INJ 500 MG, VIAL MATE ADAPTER 1 EACH in NS 250 ML IV ONE (16:00)
[2023-08-04] MEDS ORDERED: OXYTOCIN INJ 10UNITS/ML 1ML VIAL As Ordered ONE (16:00)
[2023-08-04] MEDS ORDERED: MORPHINE PRES-FREE INJ 10 MG/10 ML VIAL As Ordered ONE (16:02)
[2023-08-04 16:28] LABS: CORD GAS HCO3 A 22.5 MMOL/L; CORD GAS O2 SAT A 81.9 %; CORD GAS PH A 7.298 UNITS; CORD GAS PO2 A 42.8 mmHg; CORD GAS SBC A 20.8 MMOL/L; CORD GAS TCO2 A 23.9 MMOL/L
[2023-08-04 16:30] LABS: CORD GAS ABE V -2.9; CORD GAS HCO3 V 22.4 MMOL/L; CORD GAS O2 SAT V 83.7 %; CORD GAS PH V 7.356 UNITS; CORD GAS PO2 V 42.9 mmHg; CORD GAS SBC V 21.8 MMOL/L; CORD GAS TCO2 V 23.7 MMOL/L
[2023-08-04] MEDS ORDERED: SLF 3 ML SYR IV SCH (16:35)
[2023-08-04] MEDS ORDERED: oxyCODONE 5MG TAB PO PRN (16:35)
[2023-08-04] MEDS ORDERED: NALOXONE INJ 0.4MG/1ML VIAL IV PRN ×2 (16:35)
[2023-08-04] MEDS ORDERED: MEPERIDINE 25 MG/ML 1ML VIAL IV PRN (16:35)
[2023-08-04] MEDS ORDERED: **NOTE PATIENT COMMENT** MISC XX SCH (16:35)
[2023-08-04] MEDS ORDERED: NALBUPHINE HCL 1MG/0.1ML (100MG/10ML) MDV IV PRN (16:35)
[2023-08-04] MEDS ORDERED: PROMETHAZINE 25MG/ML 1ML VIAL IV PRN (16:35)
[2023-08-04] MEDS ORDERED: LR 1,000 ML IV SCH (16:35)
[2023-08-04] MEDS ORDERED: diphenhydrAMINE 50MG/ML VIAL IV PRN (16:35)
[2023-08-04] MEDS ORDERED: OXYTOCIN DRIP 30 UNITS in IV 1 EA IV SCH (16:50)
[2023-08-04] MEDS ORDERED: KETOROLAC 30 MG/ML 1ML VIAL As Ordered ONE (16:50)
[2023-08-04] MEDS ORDERED: RHOGAM 300MCG (1500IU) INJ IM SCH (16:50)
[2023-08-04] MEDS ORDERED: ONDANSETRON 4MG 2ML VIAL IV PRN (16:50)
[2023-08-04] MEDS ORDERED: OXYTOCIN 30UNITS IN 0.9% NaCl 500ML IV BAG As Ordered ONE (16:51)
[2023-08-04] MEDS ORDERED: KETOROLAC 30 MG/ML 1ML VIAL IV ONE (17:00)
[2023-08-04] MEDS: PERCOCET 5MG/325MG TAB PO PRN (20:36)
[2023-08-04] MEDS: KETOROLAC 30 MG/ML 1ML VIAL IV SCH (23:03)
[2023-08-05] MEDS: PERCOCET 5MG/325MG TAB PO PRN ×5 (01:45→23:29)
[2023-08-05] MEDS: LR 1,000 ML IV SCH (01:45)
[2023-08-05 02:00] VITALS: BP 133/60; O2SAT 100
[2023-08-05] MEDS: KETOROLAC 30 MG/ML 1ML VIAL IV SCH ×2 (05:03→10:29)
[2023-08-05 05:45] VITALS: BP 103/58; O2SAT 100
[2023-08-05 06:33] LABS: HEMATOCRIT 24.2 % (36.0-47.0); MEAN CORPUSCULAR HEMOGLOBIN 28.9 pg (27.0-33.0); MEAN CORPUSCULAR HGB CONC 33.5 g/dl (32.0-36.5); MEAN CORPUSCULAR VOLUME 86.4 fl (80.0-96.0); PLATELET COUNT, AUTOMATED 231 10^3/uL (150-450); WHITE BLOOD COUNT 16.7 10^3/uL (4.0-10.0)
[2023-08-05 06:34] LABS: HEMOGLOBIN 8.1 g/dl (12.0-15.5)
[2023-08-05] MEDS: SIMETHICONE 80MG CHEW TAB PO PRN ×2 (09:37→18:43)
[2023-08-05] MEDS: PRENATAL VITAMINS CHEWABLE TABLET PO SCH (09:37)
[2023-08-05 10:00] VITALS: BP 122/68; O2SAT 98
[2023-08-05 14:00] VITALS: BP 115/65; O2SAT 98
[2023-08-05 18:00] VITALS: BP 128/75; O2SAT 99
[2023-08-05] MEDS: IBUPROFEN 800 MG TAB PO SCH (18:14)
[2023-08-05] MEDS: DOCUSATE SODIUM 100MG CAPSULE PO PRN (18:44)
[2023-08-05 22:00] VITALS: BP 128/75; O2SAT 97
[2023-08-06] MEDS ORDERED: MIRALAX *UNIT DOSE* 17GM PACKET PO ONE
[2023-08-06] MEDS ORDERED: POLYETHYLENE GLYCOL (MIRALAX) 238GM BOTTLE PO ONE
[2023-08-06 02:00] VITALS: BP 140/88; O2SAT 99
[2023-08-06] MEDS: IBUPROFEN 800 MG TAB PO SCH ×3 (02:39→18:54)
[2023-08-06 06:00] VITALS: BP 124/73; O2SAT 97
[2023-08-06] MEDS: PERCOCET 5MG/325MG TAB PO PRN ×3 (06:24→22:46)
[2023-08-06] MEDS ORDERED: IBUP80TA PO (07:17)
[2023-08-06] MEDS ORDERED: COLA100C5 PO (07:17)
[2023-08-06] MEDS ORDERED: OXYC1TAB23 PO (07:18)
[2023-08-06] MEDS ORDERED: MEASLES,MUMPS,RUBELLA VACCINE INJ (MMR-II) SC.IMMUN ONE (09:00)
[2023-08-06] MEDS: PRENATAL VITAMINS CHEWABLE TABLET PO SCH (09:01)
[2023-08-06 10:00] VITALS: BP 133/80; O2SAT 99
[2023-08-06] MEDS: SIMETHICONE 80MG CHEW TAB PO PRN (11:27)
[2023-08-06 14:00] VITALS: BP 131/74; O2SAT 97
[2023-08-06 18:00] VITALS: BP 140/85; O2SAT 97
[2023-08-06] MEDS: DOCUSATE SODIUM 100MG CAPSULE PO PRN (19:57)
[2023-08-07] MEDS: IBUPROFEN 800 MG TAB PO SCH ×2 (03:12→10:21)
[2023-08-07 06:00] VITALS: BP 130/81; O2SAT 98
[2023-08-07] MEDS: PRENATAL VITAMINS CHEWABLE TABLET PO SCH (10:21)
== END 2023-08-07 10:30 | disposition home or self-care (01) | DRG 540 ==
LOC: M LDO 14:07 → M LDI 14:08 → M OBS 08-04 17:48
PROVIDERS: ADMIT Advanced Practice Midwife; ATTEND Advanced Practice Midwife
PROC: 3E0DXGC Introduction of Other Therapeutic Substance into Mouth and Pharynx, External Approach (ICD-10-PCS; 2023-08-03)
PROC: 10D00Z1 Extraction of Products of Conception, Low, Open Approach (ICD-10-PCS; principal; 2023-08-04 15:59)
DX: O26.62 Liver and biliary tract disorders in childbirth (principal); K83.1 Obstruction of bile duct; F17.200 Nicotine dependence, unspecified, uncomplicated; O99.334 Smoking (tobacco) complicating childbirth; Z37.0 Single live birth; Z3A.38 38 weeks gestation of pregnancy; Z88.8 Allergy status to other drugs, medicaments and biological substances; O99.824 Streptococcus B carrier state complicating childbirth; O32.4XX0 Maternal care for high head at term, not applicable or unspecified

== ENCOUNTER → 2023-08-03 | Outpatient (CLI) | payer OTHER ==
[~2023-08-03] MED LIST changes: +COLA100C5 PO; +IBUP80TA PO; +OXYC1TAB23 PO
== END ==
LOC: M WHC 10:35
PROVIDERS: ATTEND Obstetrics & Gynecology
DX: O26.849 Uterine size-date discrepancy, unspecified trimester (principal); Z3A.38 38 weeks gestation of pregnancy

== ENCOUNTER 2024-04-11 08:22 | Emergency (ER) | payer MEDICAID, OTHER, SELFPAY ==
[~2024-04-11] VITALS: Ht 152.4 cm; Wt 50.7 kg
[~2024-04-11 08:22] MED LIST changes: +COLA100C5 PO; +IBUP80TA PO; -MIRT-60 PO; +MIRT-89 PO; +ONDA-282 PO; -ONDA4TAB6 PO; +OXYC1TAB23 PO
[2024-04-11 10:40] LABS: BASO # 0.1 10^3/uL (0.0-0.2); BASO % 1.3 % (0.0-1.0); EOS # 0.7 10^3/uL (0.0-0.5); EOS % 7.1 % (0.0-3.0); HEMATOCRIT 36.5 % (36.0-47.0); HEMOGLOBIN 11.9 g/dl (12.0-15.5); LYMPH # 3.5 10^3/uL (1.5-5.0); LYMPH % 37.5 % (24.0-44.0); MEAN CORPUSCULAR HEMOGLOBIN 27.1 pg (27.0-33.0); MEAN CORPUSCULAR HGB CONC 32.6 g/dl (32.0-36.5); MEAN CORPUSCULAR VOLUME 83.1 fl (80.0-96.0); MONO # 0.8 10^3/uL (0.0-0.8); MONO % 8.9 % (2.0-8.0); NEUTROPHILS # 4.2 10^3/uL (1.5-8.5); NEUTROPHILS % 44.9 % (36.0-66.0); PLATELET COUNT, AUTOMATED 346 10^3/uL (150-450); RED BLOOD COUNT 4.39 10^6/uL (4.00-5.40); WHITE BLOOD COUNT 9.4 10^3/uL (4.0-10.0)
[2024-04-11 11:11] LABS: ALBUMIN 3.5 G/DL (3.2-5.2); ALKALINE PHOSPHATASE 83 U/L (46-116); ALT/SGPT < 9 U/L (7.0-40); AST/SGOT 11 U/L (<34); BILIRUBIN,DIRECT 0.2 MG/DL (<0.4); BILIRUBIN,TOTAL 0.5 MG/DL (0.3-1.2); BLOOD UREA NITROGEN 8 MG/DL (9-23); CALCIUM LEVEL 9.5 MG/DL (8.5-10.1); CARBON DIOXIDE LEVEL 24 MMOL/L (20-31); CHLORIDE LEVEL 108 MMOL/L (98-107); GLOMERULAR FILTRATION RATE > 60.0 (>60); GLUCOSE, FASTING 89 MG/DL (60-100); POTASSIUM SERUM 4.3 MMOL/L (3.5-5.1); SODIUM LEVEL 138 MMOL/L (136-145)
[2024-04-11 11:25] LABS: HCG, SERUM QUANTITATIVE 12623.3 MIU/ML (<4.2)
[2024-04-11 12:06] VITALS: BP 110/55; TEMP 97.7; O2SAT 99
[2024-04-11 14:40] LABS: Trichomonas vaginalis (AMP) NOT DETECTED (NEGATIVE)
[2024-04-11 15:04] LABS: GC DNA AMPLIFICATION NEGATIVE (NEGATIVE)
== END 2024-04-11 12:07 | disposition home or self-care (01) ==
LOC: M ED 08:22
DX: O20.0 Threatened abortion (principal); F17.200 Nicotine dependence, unspecified, uncomplicated; Z88.1 Allergy status to other antibiotic agents; Z3A.01 Less than 8 weeks gestation of pregnancy

== ENCOUNTER → 2024-04-22 | Outpatient (CLI) | payer MEDICAID, SELFPAY | LOC: M LAB 11:20 | PROVIDERS: ATTEND Physician Assistant Medical | DX: O02.1 Missed abortion (principal) ==

== ENCOUNTER → 2024-05-28 | Outpatient (CLI) | payer MEDICAID, OTHER ==
[2024-05-28 13:35] LABS: HEMATOCRIT 35.3 % (36.0-47.0); HEMOGLOBIN 11.6 g/dl (12.0-15.5); MEAN CORPUSCULAR HEMOGLOBIN 28.2 pg (27.0-33.0); MEAN CORPUSCULAR HGB CONC 32.9 g/dl (32.0-36.5); MEAN CORPUSCULAR VOLUME 85.7 fl (80.0-96.0); PLATELET COUNT, AUTOMATED 304 10^3/uL (150-450); RED BLOOD COUNT 4.12 10^6/uL (4.00-5.40); WHITE BLOOD COUNT 10.7 10^3/uL (4.0-10.0)
[2024-05-28 15:27] LABS: GC DNA AMPLIFICATION NEGATIVE (NEGATIVE)
[2024-05-28 16:33] LABS: HIV 1&2 SCREEN NEGATIVE (NEGATIVE)
[2024-05-28 17:45] LABS: HEPATITIS C VIRUS ABY INDEX 0.03 INDEX (<0.8)
== END ==
LOC: M PLALAB 09:51
PROVIDERS: ATTEND Obstetrics & Gynecology
DX: Z34.81 Encounter for supervision of other normal pregnancy, first trimester (principal); Z3A.00 Weeks of gestation of pregnancy not specified

== ENCOUNTER → 2024-06-24 | Outpatient (CLI) | payer OTHER | LOC: M PLALAB 15:56 | PROVIDERS: ATTEND Nurse Practitioner Family | DX: Z36.9 Encounter for antenatal screening, unspecified (principal) ==

== ENCOUNTER → 2024-07-21 | Outpatient (CLI) | payer MEDICAID, OTHER, SELFPAY | LOC: M WHC 12:15 | PROVIDERS: ATTEND Nurse Practitioner Family | DX: Z34.80 Encounter for supervision of other normal pregnancy, unspecified trimester (principal) ==

== ENCOUNTER → 2024-10-01 | Outpatient (CLI) | payer MEDICAID, OTHER ==
[2024-10-01 13:33] LABS: HEMATOCRIT 32.5 % (36.0-47.0); HEMOGLOBIN 10.6 g/dl (12.0-15.5); MEAN CORPUSCULAR HEMOGLOBIN 27.5 pg (27.0-33.0); MEAN CORPUSCULAR HGB CONC 32.6 g/dl (32.0-36.5); MEAN CORPUSCULAR VOLUME 84.2 fl (80.0-96.0); PLATELET COUNT, AUTOMATED 280 10^3/uL (150-450); RED BLOOD COUNT 3.86 10^6/uL (4.00-5.40); WHITE BLOOD COUNT 15.1 10^3/uL (4.0-10.0)
[2024-10-01 14:11] LABS: URIC ACID 5.1 MG/DL (3.1-7.8)
[2024-10-01 14:14] LABS: ALBUMIN 2.6 G/DL (3.2-5.2); ALKALINE PHOSPHATASE 102 U/L (35-104); ALT/SGPT 14 U/L (7.0-40); AST/SGOT 11 U/L (<34); BILIRUBIN,TOTAL 0.2 MG/DL (0.3-1.2); BLOOD UREA NITROGEN 10 MG/DL (9-23); CALCIUM LEVEL 8.3 MG/DL (8.5-10.1); CARBON DIOXIDE LEVEL 24 MMOL/L (20-31); CHLORIDE LEVEL 106 MMOL/L (98-107); CREATININE FOR GFR 0.64 MG/DL (0.55-1.30); GLOMERULAR FILTRATION RATE > 60.0 (>60); GLUCOSE CHALLENGE TEST 1 HOUR 118 MG/DL (LESS THAN 140); GLUCOSE, FASTING 118 MG/DL (60-100); SODIUM LEVEL 138 MMOL/L (136-145); TOTAL PROTEIN 6.4 G/DL (5.7-8.2)
[2024-10-01 14:38] LABS: HIV 1&2 SCREEN NEGATIVE (NEGATIVE)
[2024-10-01 14:46] LABS: HEPATITIS C VIRUS ABY INDEX 0.04 INDEX (<0.8)
[2024-10-01 15:04] LABS: GC DNA AMPLIFICATION NEGATIVE (NEGATIVE)
== END ==
LOC: M PLALAB 09:57
PROVIDERS: ATTEND Nurse Practitioner Family
DX: Z34.80 Encounter for supervision of other normal pregnancy, unspecified trimester (principal); L29.9 Pruritus, unspecified

== ENCOUNTER 2024-10-16 11:06 | Emergency (ER) | payer MEDICAID, OTHER, SELFPAY ==
[2024-10-16] MEDS ORDERED: PROM25TA12 (11:34)
[2024-10-16] MEDS ORDERED: ONDA-284 PO (11:34)
[2024-10-16] MEDS ORDERED: PRENTAB9 PO (11:34)
[2024-10-16] MEDS ORDERED: IRON27TA2 PO (11:34)
== END 2024-10-16 11:08 | disposition admitted as inpatient to this hospital (09) ==
LOC: M ED 11:06
DX: Z53.21 Procedure and treatment not carried out due to patient leaving prior to being seen by health care provider (principal)

== ENCOUNTER 2024-10-16 11:14 | Outpatient (CLI) | payer MEDICAID, OTHER, SELFPAY ==
[~2024-10-16] VITALS: Ht 152.4 cm; Wt 65.7 kg
[2024-10-16] MEDS ORDERED: ONDA-284 PO (11:34)
[2024-10-16] MEDS ORDERED: PROM25TA12 (11:34)
[2024-10-16] MEDS ORDERED: IRON27TA2 PO (11:34)
[2024-10-16] MEDS ORDERED: PRENTAB9 PO (11:34)
[2024-10-16 11:35] VITALS: BP 102/56
[2024-10-16] MEDS: ONDANSETRON 4MG TAB PO ONE (12:23)
[2024-10-16 12:43] LABS: HEMATOCRIT 31.4 % (36.0-47.0); HEMOGLOBIN 10.3 g/dl (12.0-15.5); MEAN CORPUSCULAR HEMOGLOBIN 28.1 pg (27.0-33.0); MEAN CORPUSCULAR HGB CONC 32.8 g/dl (32.0-36.5); MEAN CORPUSCULAR VOLUME 85.6 fl (80.0-96.0); PLATELET COUNT, AUTOMATED 249 10^3/uL (150-450); RED BLOOD COUNT 3.67 10^6/uL (4.00-5.40); WHITE BLOOD COUNT 14.6 10^3/uL (4.0-10.0)
[2024-10-16 13:22] LABS: ALBUMIN 2.3 G/DL (3.2-5.2); ALKALINE PHOSPHATASE 100 U/L (35-104); ALT/SGPT 14 U/L (7.0-40); AST/SGOT 11 U/L (<34); BILIRUBIN,TOTAL 0.2 MG/DL (0.3-1.2); BLOOD UREA NITROGEN 8 MG/DL (9-23); CALCIUM LEVEL 8.2 MG/DL (8.5-10.1); CARBON DIOXIDE LEVEL 25 MMOL/L (20-31); CHLORIDE LEVEL 106 MMOL/L (98-107); GLOMERULAR FILTRATION RATE > 90.0 (>60); GLUCOSE, FASTING 68 MG/DL (60-100); SODIUM LEVEL 140 MMOL/L (136-145); TOTAL PROTEIN 5.8 G/DL (5.7-8.2)
[2024-10-16 14:25] VITALS: BP 112/76
[2024-10-16 15:14] LABS: APPEARANCE, URINE HAZY (CLEAR); BACTERIA, URINE AUTO 1+ (NEGATIVE); BILIRUBIN, URINE AUTO NEGATIVE (NEGATIVE); BLOOD, URINE BLOOD NEGATIVE (NEGATIVE); COLOR, URINE YELLOW (YELLOW); GLUCOSE, URINE (UA) AUTO NEGATIVE (NEGATIVE); KETONE, URINE AUTO NEGATIVE (NEGATIVE); LEUKOCYTE ESTERASE, URINE AUTO 3+ (NEGATIVE); NITRITE, URINE AUTO NEGATIVE (NEGATIVE); PROTEIN, URINE AUTO NEGATIVE (NEGATIVE); RBC, URINE AUTO 0 /HPF (0-3); SPECIFIC GRAVITY URINE AUTO 1.009 (1.002-1.035); SQUAMOUS EPITHELIAL CELL UR AU 5 /HPF (0-6); UROBILINOGEN, URINE AUTO 0.2 mg/dL (0.0-2.0); WBC, URINE AUTO 3 /HPF (0-3)
[2024-10-16 16:57] VITALS: BP 118/57
[2024-10-16] MEDS: LR 1,000 ML IV ONE (17:18)
== END 2024-10-16 18:05 | disposition home or self-care (01) ==
LOC: M LDO 11:14
PROVIDERS: ATTEND Obstetrics & Gynecology
DX: O47.03 False labor before 37 completed weeks of gestation, third trimester (principal); O26.833 Pregnancy related renal disease, third trimester; O40.3XX0 Polyhydramnios, third trimester, not applicable or unspecified; O26.23 Pregnancy care for patient with recurrent pregnancy loss, third trimester; O99.613 Diseases of the digestive system complicating pregnancy, third trimester; O99.333 Smoking (tobacco) complicating pregnancy, third trimester; O36.8130 Decreased fetal movements, third trimester, not applicable or unspecified; N28.81 Hypertrophy of kidney; N28.1 Cyst of kidney, acquired; F17.210 Nicotine dependence, cigarettes, uncomplicated; R12 Heartburn; Z87.59 Personal history of other complications of pregnancy, childbirth and the puerperium; Z3A.32 32 weeks gestation of pregnancy
CPT/HCPCS: 36415; 59025; 76815; 76816; 76819; 76820; 80053; 81001; 85027; 87086; G0463

== ENCOUNTER → 2024-10-28 | Outpatient (REF) | payer OTHER ==
[~2024-10-28] MED LIST changes: +IRON27TA2 PO; +ONDA-284 PO; +PRENTAB9 PO; +PROM25TA12
== END ==
LOC: M SFHCWAGY 13:06
PROVIDERS: ATTEND Specialist
DX: Z34.83 Encounter for supervision of other normal pregnancy, third trimester (principal)

== ENCOUNTER 2024-11-14 08:34 | Inpatient (IN) | payer MEDICAID, OTHER ==
[~2024-11-14] VITALS: Ht 152.4 cm; Wt 68.2 kg
[2024-11-14] VITALS (11 sets, daily range): BP systolic 104–130; BP diastolic 58–83; O2SAT 97–100
[~2024-11-14 08:34] MED LIST changes: -FLOM0.4C39 PO; +TAMS-18 PO
[2024-11-14] MEDS ORDERED: HOME MED LIST COMPLETE! XX SCH (09:05)
[2024-11-14 11:45] LABS: HEMATOCRIT 34.6 % (36.0-47.0); HEMOGLOBIN 11.4 g/dl (12.0-15.5); MEAN CORPUSCULAR HEMOGLOBIN 27.3 pg (27.0-33.0); MEAN CORPUSCULAR HGB CONC 32.9 g/dl (32.0-36.5); PLATELET COUNT, AUTOMATED 258 10^3/uL (150-450); RED BLOOD COUNT 4.17 10^6/uL (4.00-5.40); WHITE BLOOD COUNT 13.8 10^3/uL (4.0-10.0)
[2024-11-14 12:19] LABS: HIV 1&2 SCREEN NEGATIVE (NEGATIVE)
[2024-11-14] MEDS: LR 1,000 ML IV ONE (12:25)
[2024-11-14 12:26] LABS: HEPATITIS C VIRUS ABY INDEX 0.05 INDEX (<0.8)
[2024-11-14] MEDS ORDERED: TRANEXAMIC ACID INJection 1,000 MG in NS 100 ML IV PRN (12:30)
[2024-11-14] MEDS ORDERED: METHYLERGONOVINE MALEATE 0.2MG/ML 1ML VIAL IM PRN (12:30)
[2024-11-14] MEDS ORDERED: CARBOPROST TROMETHAMINE 250 MCG/ML AMP IM PRN (12:30)
[2024-11-14] MEDS ORDERED: OXYTOCIN DRIP 30 UNITS in IV 1 EA IV PRN (12:30)
[2024-11-14] MEDS ORDERED: LIDOCAINE 1% MDV 20ML VIAL INFIL PRN (12:30)
[2024-11-14] MEDS ORDERED: LR 1,000 ML IV SCH (13:05)
[2024-11-14] MEDS ORDERED: NALOXONE INJ 0.4MG/1ML VIAL IV PRN ×2 (13:05)
[2024-11-14] MEDS ORDERED: ONDANSETRON 4MG 2ML VIAL IV PRN (13:05)
[2024-11-14] MEDS ORDERED: fentaNYL 100 MCG/2 ML INJECTION IV PRN (13:05)
[2024-11-14] MEDS ORDERED: oxyCODONE 5MG TAB PO PRN (13:05)
[2024-11-14] MEDS ORDERED: **NOTE PATIENT COMMENT** MISC XX SCH (13:05)
[2024-11-14] MEDS: D5W IV ONE (13:26)
[2024-11-14] MEDS: GENTAMICIN IV ONE (13:26)
[2024-11-14] MEDS ORDERED: KETOROLAC 30 MG/ML 1ML VIAL As Ordered ONE (13:31)
[2024-11-14] MEDS ORDERED: ONDANSETRON 4MG 2ML VIAL As Ordered ONE (13:31)
[2024-11-14] MEDS ORDERED: OXYTOCIN 30UNITS IN 0.9% NaCl 500ML IV BAG As Ordered ONE (13:31)
[2024-11-14] MEDS ORDERED: ACETAMINOPHEN 1000MG/100ML IV BAG As Ordered ONE (13:31)
[2024-11-14] MEDS ORDERED: MORPHINE PRES-FREE INJ 10 MG/10 ML VIAL As Ordered ONE (13:31)
[2024-11-14] MEDS: BICITRA 30ML SOLN UDC PO ONE (13:51)
[2024-11-14] MEDS: CLINDAMYCIN 900 MG in IV 1 EA IV ONE (13:51)
[2024-11-14] MEDS ORDERED: PHENYLephrine 500MCG 5ML (100MCG/ML) SYRINGE As Ordered ONE (14:04)
[2024-11-14] MEDS ORDERED: ePHEDrine SULFATE 25 MG/5 ML(5MG/ML) SYRINGE As Ordered ONE (14:04)
[2024-11-14 14:50] LABS: CORD GAS O2 SAT V 70.8 %; CORD GAS PCO2 V 34.5 mmHg; CORD GAS PH V 7.402 UNITS; CORD GAS PO2 V 27.6 mmHg; CORD GAS SBC V 21.4 MMOL/L
[2024-11-14] MEDS ORDERED: RHOGAM 300MCG (1500IU) INJ IM SCH (14:50)
[2024-11-14] MEDS ORDERED: SIMETHICONE 80MG CHEW TAB PO PRN (14:50)
[2024-11-14 14:52] LABS: CORD GAS ABE A -2.3; CORD GAS HCO3 A 22.7 MMOL/L; CORD GAS O2 SAT A 33.7 %; CORD GAS PCO2 A 40.1 mmHg; CORD GAS PH A 7.371 UNITS; CORD GAS PO2 A 14.7 mmHg; CORD GAS SBC A 21.2 MMOL/L; CORD GAS TCO2 A 23.9 MMOL/L
[2024-11-14] MEDS: LR 1,000 ML IV SCH (15:15)
[2024-11-14] MEDS ORDERED: diphenhydrAMINE 50MG/ML VIAL As Ordered ONE (15:57)
[2024-11-14] MEDS: diphenhydrAMINE 50MG/ML VIAL IV PRN (16:02)
[2024-11-14] MEDS ORDERED: oxyCODONE 5MG TAB As Ordered ONE (16:36)
[2024-11-14] MEDS: oxyCODONE 5MG TAB PO PRN (16:38)
[2024-11-14] MEDS: SLF 3 ML SYR IV SCH (17:00)
[2024-11-14] MEDS: PRENATAL VITAMINS CHEWABLE TABLET PO SCH (17:00)
[2024-11-14] MEDS: METOCLOPRAMIDE INJ 10MG/2ML VIAL IV PRN (18:14)
[2024-11-14] MEDS: KETOROLAC 30 MG/ML 1ML VIAL IV SCH (21:26)
[2024-11-15] VITALS (8 sets, daily range): BP systolic 111–145; BP diastolic 55–77; TEMP 97.1; O2SAT 97–98
[2024-11-15] MEDS: PERCOCET 5MG/325MG TAB PO PRN ×2 (05:41→20:06)
[2024-11-15 06:36] LABS: HEMATOCRIT 30.1 % (36.0-47.0); HEMOGLOBIN 10.1 g/dl (12.0-15.5); MEAN CORPUSCULAR HEMOGLOBIN 27.9 pg (27.0-33.0); MEAN CORPUSCULAR HGB CONC 33.6 g/dl (32.0-36.5); MEAN CORPUSCULAR VOLUME 83.1 fl (80.0-96.0); PLATELET COUNT, AUTOMATED 211 10^3/uL (150-450); RED BLOOD COUNT 3.62 10^6/uL (4.00-5.40); WHITE BLOOD COUNT 12.7 10^3/uL (4.0-10.0)
[2024-11-15] MEDS: IBUPROFEN 800 MG TAB PO SCH (17:04)
[2024-11-15] MEDS: busPIRone 5 MG TAB PO SCH (20:00)
[2024-11-15] MEDS: QUEtiapine FUMARATE 50MG TAB PO SCH (20:01)
[2024-11-16 02:00] VITALS: BP 112/68; O2SAT 97
[2024-11-16 06:00] VITALS: BP 120/67; O2SAT 98
[2024-11-16] MEDS ORDERED: BOOSTRIX VACCINE (TETANUS/DIPHTH/ACEL. PERTUSSIS) 0.5ML SYR IM.IMMUN ONE (09:00)
[2024-11-16] MEDS: MEASLES,MUMPS,RUBELLA VACCINE INJ (MMR-II) SC.IMMUN ONE (09:59)
[2024-11-16 11:15] VITALS: O2SAT 97
[2024-11-16 11:27] VITALS: BP 126/80
[2024-11-16 14:25] VITALS: BP 135/69; O2SAT 97
[2024-11-16 22:00] VITALS: BP 131/74; O2SAT 97
[2024-11-17 06:00] VITALS: BP 145/80; O2SAT 98
[2024-11-17] MEDS: DOCUSATE SODIUM 100MG CAPSULE PO PRN (07:16)
[2024-11-17] MEDS ORDERED: COLA100C5 PO (07:31)
[2024-11-17] MEDS: BOOSTRIX VACCINE (TETANUS/DIPHTH/ACEL. PERTUSSIS) 0.5ML SYR IM.IMMUN ONE (08:50)
[2024-11-17] MEDS ORDERED: BUSP5TA PO (16:25)
[2024-11-17] MEDS ORDERED: ZOLO50TA PO (16:26)
== END 2024-11-17 13:35 | disposition home or self-care (01) | DRG 540 ==
LOC: M LDO 08:34 → M LDI 12:25 → M OBS 16:45
PROVIDERS: ADMIT Advanced Practice Midwife; ATTEND Advanced Practice Midwife
PROC: 10D00Z1 Extraction of Products of Conception, Low, Open Approach (ICD-10-PCS; principal; 2024-11-14 14:00)
PROC: 0UB70ZZ Excision of Bilateral Fallopian Tubes, Open Approach (ICD-10-PCS; 2024-11-14 14:00)
DX: O60.14X0 Preterm labor third trimester with preterm delivery third trimester, not applicable or unspecified (principal); O40.3XX0 Polyhydramnios, third trimester, not applicable or unspecified; Z37.0 Single live birth; Z3A.36 36 weeks gestation of pregnancy; O34.211 Maternal care for low transverse scar from previous cesarean delivery; Z88.8 Allergy status to other drugs, medicaments and biological substances; F17.200 Nicotine dependence, unspecified, uncomplicated; Z30.2 Encounter for sterilization; O99.334 Smoking (tobacco) complicating childbirth

== ENCOUNTER 2025-03-08 13:51 | Emergency (ER) | payer MEDICAID, OTHER ==
[~2025-03-08] VITALS: Ht 152.4 cm; Wt 59.0 kg
[~2025-03-08 13:51] MED LIST changes: +BUSP5TA PO; -IBUP-1022 PO; +IBUP600T42 PO; +ZOLO50TA PO
[2025-03-08 14:07] VITALS: TEMP 98.6
[2025-03-08] MEDS: NS (Normal Saline) 0.9% 1,000 ML IV ONE (14:31)
[2025-03-08 14:39] LABS: BASO # 0.1 10^3/uL (0.0-0.2); BASO % 0.5 % (0.0-1.0); EOS # 0.1 10^3/uL (0.0-0.5); EOS % 0.9 % (0.0-3.0); LYMPH # 3.0 10^3/uL (1.5-5.0); LYMPH % 18.7 % (24.0-44.0); MONO # 1.1 10^3/uL (0.0-0.8); MONO % 6.8 % (2.0-8.0); NEUTROPHILS # 11.4 10^3/uL (1.5-8.5); NEUTROPHILS % 72.3 % (36.0-66.0); PLATELET COUNT, AUTOMATED 364 10^3/uL (150-450)
[2025-03-08 15:03] LABS: CPK CREATINE PHOSPHOKINASE 103 U/L (34-145)
[2025-03-08 15:04] LABS: ALT/SGPT 21 U/L (7.0-40); AST/SGOT 21 U/L (<34); CALCIUM LEVEL 8.9 MG/DL (8.5-10.1); CARBON DIOXIDE LEVEL 22 MMOL/L (20-31); CHLORIDE LEVEL 108 MMOL/L (98-107); CREATININE FOR GFR 0.67 MG/DL (0.55-1.30); GLOMERULAR FILTRATION RATE > 90.0 (>60); POTASSIUM SERUM 3.8 MMOL/L (3.5-5.1); SALICYLATE LEVEL < 3.0 MG/DL (<30); SODIUM LEVEL 141 MMOL/L (136-145)
[2025-03-08 15:09] LABS: HCG, SERUM QUALITATIVE NEGATIVE (NEGATIVE)
[2025-03-08 15:10] LABS: ETHYL ALCOHOL (ETHANOL) 0.003 % (0.000-0.010)
[2025-03-08 19:00] VITALS: BP 139/83; O2SAT 98
[2025-03-08 20:43] LABS: AMPHETAMINES LEVEL URINE NEGATIVE (NEGATIVE); BARBITURATES URINE NEGATIVE (NEGATIVE); BENZODIAZEPINES URINE NEGATIVE (NEGATIVE)
[2025-03-08 20:44] LABS: OPIATES URINE NEGATIVE (NEGATIVE); PHENCYCLIDINE URINE NEGATIVE (NEGATIVE)
[2025-03-08 21:24] LABS: CANNABINOIDS URINE POSITIVE (NEGATIVE)
[2025-03-09 07:35] LABS: COCAINE METABOLITE URINE NEGATIVE (NEGATIVE); METHADONE URINE NEGATIVE (NEGATIVE)
== END 2025-03-09 00:44 | disposition home or self-care (01) ==
LOC: M ED 13:51
DX: F43.0 Acute stress reaction (principal); F41.9 Anxiety disorder, unspecified; F32.A Depression, unspecified; F12.10 Cannabis abuse, uncomplicated; F10.10 Alcohol abuse, uncomplicated; Z87.891 Personal history of nicotine dependence; Z88.1 Allergy status to other antibiotic agents